=== PATIENT | male | born 1935 ===

== ENCOUNTER → 2016-11-02 | Outpatient (CLI) | payer MEDICARE, BC ==
[~2016-11-02] MED LIST: ALLOPURINOL300 MG PO; ASPIRIN325 MG PO; BIOTIN300 MCG PO; BIPAP INH; CALCIUM500 MG PO; CHERRY EXTRACT PO; CHROMIUM PO; CINNAMON500 MG PO; CLA PO; COPPER2 MG PO; COQ-10100 MG PO; COZAAR50 MG PO; FISH OIL PO; FOLIC ACID PO; GRAPE SEED EXTR50 MG PO; IODINE PO; LUTEIN20 MG PO; MAGNESIUM400 MG PO; MANGANESE PO; MOLYBDENUM PO; NIACIN PO; NORVASC2.5 MG PO; PANTOTHENIC ACID PO; PLANT STEROLS PO; PLAVIX75 MG PO; PROBIOTIC1 EAC1 PO; PROTONIX40 MG PO; REPATHA SU140 MG/1 M SUB-Q; RESVERATROL PO; RIBOFLAVIN PO; SELENIUM200 MC1 PO; THIAMINE PO; TOPROL XL 5050 MG PO; VITAMIN A PO; VITAMIN B-625 MG PO; VITAMIN B12 PO; VITAMIN C PO; VITAMIN D-32000 UNI1 PO; VITAMIN E400 UNI2 PO; ZINC30 M1 PO
== END | disposition disaster alternative care site (69) ==
LOC: GRAD 11-01 09:00
DX: M54.17 Radiculopathy, lumbosacral region (principal); M25.552 Pain in left hip; K57.90 Diverticulosis of intestine, part unspecified, without perforation or abscess without bleeding; M47.896 Other spondylosis, lumbar region; M48.07 Spinal stenosis, lumbosacral region

== ENCOUNTER → 2017-01-04 | Day surgery (SDC) | payer MEDICARE, BC ==
[~2017-01-04] VITALS: Ht 170.2 cm; Wt 77.9 kg
== END ==
LOC: GPOC 01-02 10:00 → GSDC 13:30
PROC: 3E0S33Z Introduction of Anti-inflammatory into Epidural Space, Percutaneous Approach (ICD-10-PCS; principal; 2017-01-04)
PROC: 3E0S3BZ Introduction of Anesthetic Agent into Epidural Space, Percutaneous Approach (ICD-10-PCS; 2017-01-04)
DX: M48.07 Spinal stenosis, lumbosacral region (principal); E78.5 Hyperlipidemia, unspecified; I25.10 Atherosclerotic heart disease of native coronary artery without angina pectoris; I10 Essential (primary) hypertension; I48.92 Unspecified atrial flutter; G47.33 Obstructive sleep apnea (adult) (pediatric); I25.2 Old myocardial infarction; Z95.5 Presence of coronary angioplasty implant and graft; Z90.49 Acquired absence of other specified parts of digestive tract; Z98.890 Other specified postprocedural states; Z95.1 Presence of aortocoronary bypass graft
CPT/HCPCS: J1030; J1040